=== PATIENT | female | born 1985 | race Two or more races ===

== ENCOUNTER → 2018-07-18 | Outpatient (CLI) | payer MEDICAID | END | disposition home or self-care (01) | LOC: U/S 13:25 | DX: O36.70X0 Maternal care for viable fetus in abdominal pregnancy, unspecified trimester, not applicable or unspecified (principal); Z3A.00 Weeks of gestation of pregnancy not specified | CPT/HCPCS: 76801; 76817 ==

== ENCOUNTER 2018-12-01 17:37 | Outpatient (CLI) | payer MEDICAID | END 2018-12-01 22:18 | disposition home or self-care (01) | LOC: OBT 17:37 → L-D 17:38 → OBT 22:18 | DX: O76 Abnormality in fetal heart rate and rhythm complicating labor and delivery (principal); Z3A.38 38 weeks gestation of pregnancy | CPT/HCPCS: 76818 ==

== ENCOUNTER 2018-12-20 21:56 | Inpatient (IN) | payer MEDICAID ==
[2018-12-21 02:03] LABS: ADD UMIC NO; UR ASCORBIC ACID NEGATIVE (NEGATIVE); UR BILIRUBIN (Dip) NEGATIVE (NEGATIVE); UR BLOOD (Dip) NEGATIVE (NEGATIVE); UR CLARITY CLEAR (CLEAR); UR COLOR YELLOW (YELLOW); UR GLUCOSE (Dip) NEGATIVE (NEGATIVE); UR KETONES (Dip) TRACE mg/dL (NEGATIVE); UR LEUKOCYTE ESTERASE (Dip) NEGATIVE Leu/ul (NEGATIVE); UR NITRITE (Dip) NEGATIVE (NEGATIVE); UR SPECIFIC GRAVITY (Dip) 1.017 (1.003-1.030); UR TOTAL PROTEIN (Dip) NEGATIVE (NEGATIVE); UR UROBILINOGEN (Dip) NEGATIVE (NEGATIVE)
[2018-12-21] MEDS: LIDOCAINE/MYLANTA 40 ML BTL PO (04:37)
[2018-12-21] MEDS: TERBUTALINE 1 MG/ML INJ SC ×2 (07:03→08:40)
[2018-12-21] MEDS ORDERED: LACTATED RINGER'S 1,000 ML IV (08:00)
[2018-12-21] MEDS: LACTATED RINGER'S 1,000 ML IV (11:54)
[2018-12-21] MEDS: MAGNESIUM SULFATE 4 GM/100 ML 100 ML IV (11:59)
[2018-12-21] MEDS: LACTATED RINGER'S 500 ML IV (12:25)
[2018-12-21] MEDS: MAGNESIUM SULFATE 20 GM/500 ML 500 ML IV ×2 (13:02→22:18)
[2018-12-21] MEDS: BETAMET NA PHOS/AC(6 MG/ML) 2 ML INJ SYG IM (13:06)
[2018-12-21 19:05] LABS: MAGNESIUM 4.5 mg/dl (1.7-2.5)
[2018-12-22] MEDS: LACTATED RINGER'S 1,000 ML IV ×2 (01:14→17:42)
[2018-12-22 01:42] LABS: MAGNESIUM 4.8 mg/dl (1.7-2.5)
[2018-12-22 06:23] LABS: MAGNESIUM 4.9 mg/dl (1.7-2.5)
[2018-12-22] MEDS: MAGNESIUM SULFATE 20 GM/500 ML 500 ML IV (07:27)
[2018-12-22] MEDS ORDERED: PRENATAL VITAMIN PO ×2 (09:00→21:00)
[2018-12-22] MEDS ORDERED: FERROUS SULFATE (EC) 325 MG TAB PO ×2 (09:00→21:00)
[2018-12-22] MEDS: BETAMET NA PHOS/AC(6 MG/ML) 2 ML INJ SYG IM (13:11)
[2018-12-22 13:29] LABS: MAGNESIUM 4.9 mg/dl (1.7-2.5)
[2018-12-22] MEDS: NIFEdipine 10 MG CAP PO ×2 (15:11→18:00)
[2018-12-22] MEDS ORDERED: CALCIUM CARBONATE 1.25 GM TAB PO (21:00)
== END 2018-12-22 20:25 | disposition home or self-care (01) | DRG 833 ==
LOC: OBT 21:56 → L-D 12-21 00:25 → OBT 12-21 10:43 → PP1 12-21 10:43
PROVIDERS: Obstetrics & Gynecology
DX: O47.03 False labor before 37 completed weeks of gestation, third trimester (principal); Z3A.31 31 weeks gestation of pregnancy
CPT/HCPCS: 36415; 76705; 76815; 76817; 81003; 82731; 83735; 96372

== ENCOUNTER 2019-02-17 09:54 | Outpatient (CLI) | payer MEDICAID | END 2019-02-17 11:45 | disposition home or self-care (01) | LOC: OBT 09:54 → L-D 09:55 → OBT 11:45 | DX: O48.0 Post-term pregnancy (principal); Z3A.40 40 weeks gestation of pregnancy | CPT/HCPCS: 76815; 76818 ==

== ENCOUNTER 2019-02-20 10:05 | Inpatient (IN) | payer MEDICAID ==
[2019-02-20] MEDS ORDERED: LIDOCAINE 1% (MPF) 30 ML INJ INJ (12:00)
[2019-02-20] MEDS ORDERED: OXYTOCIN 30 UNITS/LR 500 ML IV ×3 (12:00)
[2019-02-20] MEDS ORDERED: CARBOPROST 250 MCG INJ IM (12:00)
[2019-02-20] MEDS ORDERED: AMPICILLIN 2 GM/NS (PMX) 100 ML IV (12:00)
[2019-02-20] MEDS ORDERED: MISOPROSTOL 50 MCG CAPSULE VAG (12:00)
[2019-02-20] MEDS ORDERED: MISOPROSTOL 200 MCG TAB PR (12:00)
[2019-02-20] MEDS ORDERED: METHYLERGONOVINE 0.2 MG INJ IM (12:00)
[2019-02-20 12:21] LABS: ADD MAN DIFF? NO; BASOPHILS % 0.1 % (0.0-2.0); EOSINOPHILS # 0.1 10^3/ul (0.0-0.5); EOSINOPHILS % 0.6 % (0.0-7.0); HEMATOCRIT 38.7 % (37.0-47.0); HEMOGLOBIN 13.1 g/dl (12.0-16.0); LYMPHOCYTES # 2.3 10^3/ul (0.8-2.9); LYMPHOCYTES % 24.3 % (15.0-51.0); MEAN CORPUSCULAR HEMOGLOBIN 31.2 pg (29.0-33.0); MEAN CORPUSCULAR HGB CONC 33.9 g/dl (32.0-37.0); MEAN CORPUSCULAR VOLUME 92.1 fl (82.0-101.0); MEAN PLATELET VOLUME 11.1 fl (7.4-10.4); MONOCYTE # 0.8 10^3/ul (0.3-0.9); NEUTROPHIL # 6.1 10^3/ul (1.6-7.5); NEUTROPHILS % 65.7 % (39.0-77.0); PLATELET COUNT 173 10^3/UL (140-415); RED CELL DISTRIBUTION WIDTH 13.2 % (11.5-14.5)
[2019-02-20 12:21] LABS: WHITE BLOOD COUNT 9.3 10^3/ul (4.8-10.8)
[2019-02-20] MEDS: LACTATED RINGER'S 1,000 ML IV ×2 (12:26→18:44)
[2019-02-20 12:39] LABS: INR 0.79; PROTIME 11.1 Sec (11.9-14.9); PT RATIO 0.9
[2019-02-20 12:40] LABS: PARTIAL THROMBOPLASTIN TIME 23.8 Sec (23.0-35.0)
[2019-02-20] MEDS: MISOPROSTOL 50 MCG CAPSULE PO ×3 (13:42→22:38)
[2019-02-20] MEDS ORDERED: AMPICILLIN 1 GM/NS (PMX) 50 ML IV (15:30)
[2019-02-20 16:42] LABS: HEPATITIS B SURFACE ANTIGEN NEGATIVE (NEGATIVE)
[2019-02-20 19:17] LABS: RAPID PLASMA REAGIN NONREACTIVE (NR)
[2019-02-21] MEDS: LACTATED RINGER'S 1,000 ML IV ×3 (03:50→19:55)
[2019-02-21] MEDS: MISOPROSTOL 50 MCG CAPSULE PO ×3 (03:50→12:34)
[2019-02-22] MEDS: LACTATED RINGER'S 1,000 ML IV ×2 (06:25→14:14)
[2019-02-22] MEDS: OXYTOCIN 30 UNITS/LR 500 ML IV (12:43)
[2019-02-22] MEDS ORDERED: OXYTOCIN 30 UNITS/LR 500 ML IV (13:00)
[2019-02-23] MEDS: BUTORPHANOL 2 MG INJ IV (00:18)
[2019-02-23] MEDS: LACTATED RINGER'S 1,000 ML IV ×3 (00:18→06:17)
[2019-02-23] MEDS ORDERED: CARBOPROST 250 MCG INJ IM ×2 (01:03→23:00)
[2019-02-23] MEDS ORDERED: FENTAnyl 2MCG/ML-ROPIV 0.2% 100 ML (01:57)
[2019-02-23] MEDS ORDERED: FENTAnyl 50 MCG/ML VIAL (01:58)
[2019-02-23] MEDS ORDERED: DIPHENHYDRAMINE 50 MG INJ IV ×3 (02:00→20:30)
[2019-02-23] MEDS ORDERED: NALOXONE (0.4 MG/ML) INJ IV ×2 (02:00→20:30)
[2019-02-23] MEDS ORDERED: ZOLPIDEM 5 MG TAB PO (02:00)
[2019-02-23] MEDS ORDERED: ONDANSETRON 4 MG INJ IV ×3 (02:00→20:30)
[2019-02-23] MEDS: ACETAMINOPHEN 325 MG TAB PO ×2 (06:47→14:20)
[2019-02-23] MEDS: GENTAMICIN 120 MG/NS (PMX) 100 ML IVPB (06:58)
[2019-02-23] MEDS: AMPICILLIN 2 GM/NS (PMX) 100 ML IVPB ×3 (08:07→16:20)
[2019-02-23] MEDS: FENTAnyl 2MCG/ML-ROPIV 0.2% 100 ML BAG EPI (11:10)
[2019-02-23] MEDS: GENTAMICIN 80 MG/NS (PMX) 50 ML IVPB (15:13)
[2019-02-23] MEDS ORDERED: OXYTOCIN 30 UNITS/LR 500 ML IV ×3 (16:00→23:00)
[2019-02-23] MEDS ORDERED: CEFAZOLIN 2 GM/50 ML (PMX) 50 ML IVPB (16:00)
[2019-02-23] MEDS: CLINDAMYCIN 900 MG/D5W (PMX) 50 ML IVPB (17:00)
[2019-02-23] MEDS ORDERED: KETOROLAC 30 MG INJ (17:13)
[2019-02-23] MEDS ORDERED: LIDOCAINE 1.5%/EPI MPF (SDV) 30 ML VIAL (17:13)
[2019-02-23] MEDS ORDERED: morphine SULFATE/PF (10 MG/10 ML) INJ (17:13)
[2019-02-23] MEDS ORDERED: METOCLOPRAMIDE 10 MG INJ (17:13)
[2019-02-23] MEDS ORDERED: ACETAMINOPHEN 325 MG TAB PO (19:00)
[2019-02-23] MEDS ORDERED: morphine 2 MG INJ IV ×6 (20:30)
[2019-02-23] MEDS ORDERED: KETOROLAC 30 MG INJ IV (20:30)
[2019-02-23 20:44] LABS: LACTATE DEHYDROGENASE 574 IU/L (313-618)
[2019-02-23] MEDS: KETOROLAC 30 MG INJ IV (20:48)
[2019-02-23] MEDS: CIPROFLOXACIN 400MG/D5W 200 ML IVPB (21:24)
[2019-02-23] MEDS ORDERED: NA PHOSPHATE/BIPHOS 133 ML ENEMA PR (23:00)
[2019-02-23] MEDS ORDERED: MISOPROSTOL 200 MCG TAB PR (23:00)
[2019-02-23] MEDS ORDERED: HYDROCODONE/APAP (5/325) TAB PO (23:00)
[2019-02-23] MEDS ORDERED: METHYLERGONOVINE 0.2 MG INJ IM (23:00)
[2019-02-23] MEDS ORDERED: OXYCODONE/ACETAMINOPHEN (5/325) TAB PO (23:00)
[2019-02-24] MEDS: LACTATED RINGER'S 1,000 ML IV ×2 (00:04→22:36)
[2019-02-24] MEDS: GENTAMICIN 80 MG/NS (PMX) 50 ML IVPB ×4 (00:21→22:36)
[2019-02-24] MEDS: AMPICILLIN 2 GM/NS (PMX) 100 ML IVPB ×5 (01:43→23:35)
[2019-02-24] MEDS: CLINDAMYCIN 900 MG/D5W (PMX) 50 ML IVPB ×4 (01:44→19:10)
[2019-02-24 07:27] LABS: ADD MAN DIFF? NO
[2019-02-24 07:29] LABS: WHITE BLOOD COUNT 14.9 10^3/ul (4.8-10.8)
[2019-02-24 07:29] LABS: BASOPHILS % 0.1 % (0.0-2.0); EOSINOPHILS % 0.1 % (0.0-7.0); HEMATOCRIT 31.5 % (37.0-47.0); HEMOGLOBIN 10.5 g/dl (12.0-16.0); LYMPHOCYTES # 1.3 10^3/ul (0.8-2.9); MEAN CORPUSCULAR HEMOGLOBIN 31.1 pg (29.0-33.0); MEAN CORPUSCULAR HGB CONC 33.3 g/dl (32.0-37.0); MEAN CORPUSCULAR VOLUME 93.2 fl (82.0-101.0); MEAN PLATELET VOLUME 11.2 fl (7.4-10.4); MONOCYTE # 0.7 10^3/ul (0.3-0.9); MONOCYTES % 4.4 % (0.0-11.0); NEUTROPHIL # 12.8 10^3/ul (1.6-7.5); NEUTROPHILS % 85.9 % (39.0-77.0); PLATELET COUNT 133 10^3/UL (140-415); RED BLOOD COUNT 3.38 10^6/ul (4.20-5.40); RED CELL DISTRIBUTION WIDTH 13.7 % (11.5-14.5)
[2019-02-24] MEDS: MINERAL OIL LIGHT 10 ML VIAL TOP (08:00)
[2019-02-24] MEDS: KETOROLAC 30 MG INJ IV (11:24)
[2019-02-24] MEDS: BISACODYL 10 MG SUPP PR (14:14)
[2019-02-24] MEDS: SENNA/DOCUSATE NA (8.6MG/50MG) TAB PO (21:40)
[2019-02-24] MEDS: IBUPROFEN 800 MG TAB PO (21:40)
[2019-02-25] MEDS: CLINDAMYCIN 900 MG/D5W (PMX) 50 ML IVPB ×4 (01:19→19:43)
[2019-02-25] MEDS: AMPICILLIN 2 GM/NS (PMX) 100 ML IVPB ×3 (05:36→18:15)
[2019-02-25] MEDS: IBUPROFEN 800 MG TAB PO ×3 (05:58→21:49)
[2019-02-25] MEDS: LACTATED RINGER'S 1,000 ML IV ×3 (06:00→23:01)
[2019-02-25] MEDS: GENTAMICIN 80 MG/NS (PMX) 50 ML IVPB ×2 (08:05→17:27)
[2019-02-25 08:43] LABS: ADD MAN DIFF? NO
[2019-02-25 08:51] LABS: WHITE BLOOD COUNT 12.9 10^3/ul (4.8-10.8)
[2019-02-25 08:51] LABS: BASOPHILS % 0.2 % (0.0-2.0); EOSINOPHILS # 0.1 10^3/ul (0.0-0.5); EOSINOPHILS % 0.9 % (0.0-7.0); HEMATOCRIT 31.8 % (37.0-47.0); HEMOGLOBIN 10.6 g/dl (12.0-16.0); LYMPHOCYTES # 1.9 10^3/ul (0.8-2.9); LYMPHOCYTES % 14.9 % (15.0-51.0); MEAN CORPUSCULAR HEMOGLOBIN 31.2 pg (29.0-33.0); MEAN CORPUSCULAR HGB CONC 33.3 g/dl (32.0-37.0); MEAN CORPUSCULAR VOLUME 93.5 fl (82.0-101.0); MEAN PLATELET VOLUME 11.6 fl (7.4-10.4); MONOCYTE # 0.8 10^3/ul (0.3-0.9); MONOCYTES % 6.1 % (0.0-11.0); NEUTROPHILS % 77.4 % (39.0-77.0); PLATELET COUNT 156 10^3/UL (140-415); RED CELL DISTRIBUTION WIDTH 13.7 % (11.5-14.5)
[2019-02-25 09:15] LABS: GENTAMICIN,RANDOM < 0.6 ug/ml
[2019-02-25] MEDS: SENNA/DOCUSATE NA (8.6MG/50MG) TAB PO ×2 (09:56→21:49)
[2019-02-25] MEDS: LANOLIN HPA 1 PKT TOP (12:04)
[2019-02-25] MEDS: CIPROFLOXACIN 500 MG TAB PO (22:33)
[2019-02-25] MEDS: DOXYCYCLINE 100 MG TAB PO (22:59)
[2019-02-26] MEDS: CIPROFLOXACIN 500 MG TAB PO (05:59)
[2019-02-26] MEDS: IBUPROFEN 800 MG TAB PO ×2 (05:59→13:58)
[2019-02-26 08:19] LABS: ADD MAN DIFF? NO; BASOPHILS % 0.2 % (0.0-2.0); EOSINOPHILS # 0.2 10^3/ul (0.0-0.5); EOSINOPHILS % 2.1 % (0.0-7.0); HEMATOCRIT 29.7 % (37.0-47.0); LYMPHOCYTES # 2.1 10^3/ul (0.8-2.9); LYMPHOCYTES % 19.6 % (15.0-51.0); MEAN CORPUSCULAR HEMOGLOBIN 31.2 pg (29.0-33.0); MEAN CORPUSCULAR HGB CONC 33.7 g/dl (32.0-37.0); MEAN CORPUSCULAR VOLUME 92.5 fl (82.0-101.0); MONOCYTE # 0.8 10^3/ul (0.3-0.9); MONOCYTES % 7.3 % (0.0-11.0); NEUTROPHIL # 7.6 10^3/ul (1.6-7.5); NEUTROPHILS % 70.2 % (39.0-77.0); PLATELET COUNT 186 10^3/UL (140-415); RED BLOOD COUNT 3.21 10^6/ul (4.20-5.40); RED CELL DISTRIBUTION WIDTH 13.7 % (11.5-14.5)
[2019-02-26 08:19] LABS: WHITE BLOOD COUNT 10.8 10^3/ul (4.8-10.8)
[2019-02-26] MEDS: DOXYCYCLINE 100 MG TAB PO (09:55)
[2019-02-26] MEDS: DIPHTH/TET/ACEL PERTUSS (ADULT) 0.5 ML VIAL IM* (09:55)
[2019-02-26] MEDS: SENNA/DOCUSATE NA (8.6MG/50MG) TAB PO (09:55)
[2019-02-26] MEDS ORDERED: ACETAMINOPHEN 325 MG TAB PO (12:00)
== END 2019-02-26 16:20 | disposition home or self-care (01) | DRG 786 ==
LOC: OBT 10:05 → L-D 02-23 17:09 → OBT 11:03 → PP1 02-23 21:45 → L-D 11:03
PROVIDERS: Obstetrics & Gynecology
PROC: 10D00Z1 Extraction of Products of Conception, Low, Open Approach (ICD-10-PCS; principal; 2019-02-23)
DX: O48.0 Post-term pregnancy (principal); O41.1030 Infection of amniotic sac and membranes, unspecified, third trimester, not applicable or unspecified; O41.03X0 Oligohydramnios, third trimester, not applicable or unspecified; Z3A.40 40 weeks gestation of pregnancy; O62.1 Secondary uterine inertia; Z37.0 Single live birth
CPT/HCPCS: 62322; 76815; 76818; 80170; 83615; 85025; 85610; 85730; 86592; 86850; 86900; 86901; 87040-91; 87086; 87340; 88307; 99464